=== PATIENT | female | born 1955 | race Caucasian/White ===

== ENCOUNTER → 2018-09-22 | Day surgery (SDC) | payer OTHER ==
[~2018-09-22] MED LIST: CETIRIZINE HCL10 MG; EPI PEN; FENTANYL CITRATE/PF 100MCG/2 ML INJ ONE; HYDRALAZINE HCL 20 MG/ML VIAL ONE; KETAMINE HCL INJ 50 MG/ML 10 ML VIAL ONE; LEVALBUTER0.63 MG/3 NEB; LISINOPRIL2.5 MG PO; MIDAZOLAM HCL 2 MG/2 ML VIAL ONE; MONTELUKAST SOD10 MG PO; PROPOFOL IV EMULSION 10 MG/ML 50 ML VIAL ONE
[2018-09-22 11:05] VITALS: BP 139/72
--- NOTE | 2018-09-22 12:04 | Operative Report ---
DATE OF PROCEDURE: 09/22/2018 SURGEON: Hamilton Sloan MD PROCEDURES PERFORMED: Esophagogastroduodenoscopy and colonoscopy. PREOPERATIVE DIAGNOSES: Chronic recurrent gastroesophageal reflux disease, family history of esophageal cancer, colon polyps, and family history of colon cancer. POSTOPERATIVE DIAGNOSES: Hiatal hernia, reflux esophagitis, and gastritis. No colon polyps found. Internal hemorrhoids present. PROCEDURE IN DETAIL: PROCEDURE #1: Esophagogastroduodenoscopy: Preoperative medications consisted of propofol administered with MAC anesthesia. Using an Olympus DULCE video gastroscope, it was inserted into the patient's oropharynx, advanced to the hypopharynx, and down to the esophagus. The mucosa present in the esophagus was normal until we reached 37 cm. Then, we had evidence of reflux esophagitis above large hiatal hernia from 38 cm to 40 cm. The stomach was insufflated with air. The mucosa present in the cardia, fundus, body, and antrum was viewed with evidence of gastritis, but no evidence of any ulceration. Motility was normal. Biopsies were obtained in the antrum and the fundus looking for the H. Pylori infection. The duodenal bulb and postbulbar duodenum were found to be within normal limits. The endoscope was then withdrawn back up into the stomach, retroflexed again viewing the cardia, fundus and below. Again, hiatal hernia was seen. The endoscope was then withdrawn back up into the esophagus where biopsies were obtained in the area of the reflux esophagitis. No evidence of any tumor or masses were seen. The endoscope was then withdrawn back up into the esophagus, hypopharynx, oropharynx, and out of the patient's mouth and the procedure was ended. PROCEDURE #2: Colonoscopy: After normal digital rectal examination, an Olympus DULCE video colonoscope was inserted into the patient's rectum and advanced without difficulty to the level of cecum. The cecum was documented with photo documentation. The colon was studied from that level back down to the rectum. No polypoid lesions, tumors, masses, or inflammatory changes were encountered. No diverticula were seen. As we exited the rectum, internal hemorrhoids were present. Hamilton Sloan MD SAF/MODL /[id number]
== END | disposition home or self-care (01) ==
LOC: OR 07:28
PROVIDERS: ATTEND Internal Medicine Gastroenterology
DX: K21.0 Gastro-esophageal reflux disease with esophagitis (principal); K29.70 Gastritis, unspecified, without bleeding; K44.9 Diaphragmatic hernia without obstruction or gangrene; K64.8 Other hemorrhoids; D12.6 Benign neoplasm of colon, unspecified; G47.33 Obstructive sleep apnea (adult) (pediatric); J45.909 Unspecified asthma, uncomplicated; Z88.6 Allergy status to analgesic agent; Z91.012 Allergy to eggs; Z01.810 Encounter for preprocedural cardiovascular examination; Z80.0 Family history of malignant neoplasm of digestive organs
CPT/HCPCS: 43239; 45378; 93005; J0360; J2250; J2704